=== PATIENT | female | born 1960 | race Caucasian/White ===

== ENCOUNTER → 2020-10-22 13:58 | Outpatient (REF) | payer OTHER, SELFPAY | LOC: ANHLAB 13:58 | PROVIDERS: Visit Provider Nurse Practitioner | DX: D04.72 Carcinoma in situ of skin of left lower limb, including hip (principal) | CPT/HCPCS: 88305 ==

== ENCOUNTER → 2020-11-22 09:02 | Outpatient (REF) | payer OTHER, SELFPAY | LOC: ANHLAB 09:02 | PROVIDERS: Visit Provider Nurse Practitioner | DX: C44.729 Squamous cell carcinoma of skin of left lower limb, including hip (principal) | CPT/HCPCS: 88305 ==

== ENCOUNTER 2022-05-20 07:00 | Outpatient (NON) | payer OTHER, SELFPAY | END 2022-05-20 07:01 | disposition home or self-care (01) | PROVIDERS: Visit Provider Nurse Practitioner | DX: L57.0 Actinic keratosis (principal) | CPT/HCPCS: 88305 ==

== ENCOUNTER 2022-12-30 08:00 | Outpatient (NON) | payer OTHER, SELFPAY | END 2022-12-30 08:01 | disposition home or self-care (01) | LOC: ANHLAB 12-31 12:11 | PROVIDERS: Visit Provider Nurse Practitioner | DX: L82.1 Other seborrheic keratosis (principal); L81.4 Other melanin hyperpigmentation | CPT/HCPCS: 88305 ==